=== PATIENT | male | born 1960 | race Caucasian/White ===

== ENCOUNTER → 2023-05-16 07:28 | Outpatient (REF) | payer OTHER, SELFPAY | LOC: EMG 07:28 | PROVIDERS: ATTENDING PHYSICIAN Family Medicine | DX: R20.2 Paresthesia of skin (principal); R20.0 Anesthesia of skin | CPT/HCPCS: 95886; 95909 ==

== ENCOUNTER → 2023-05-19 13:56 | Outpatient (REF) | payer OTHER, SELFPAY | LOC: DHCBS HW 13:56 | PROVIDERS: ATTENDING PHYSICIAN Internal Medicine Cardiovascular Disease; FAMILY PHYSICIAN Family Medicine | DX: I10 Essential (primary) hypertension (principal) | CPT/HCPCS: 93306 ==

== ENCOUNTER → 2024-09-26 13:59 | Outpatient (REF) | payer OTHER, SELFPAY | LOC: HWRCS 13:59 | PROVIDERS: ATTENDING PHYSICIAN Internal Medicine Cardiovascular Disease; FAMILY PHYSICIAN Family Medicine | DX: R06.09 Other forms of dyspnea (principal) | CPT/HCPCS: 93306 ==